=== PATIENT | female | born 1990 | race Caucasian/White ===

== ENCOUNTER 2018-07-13 11:51 | Outpatient (CLI) | payer OTHER ==
[2018-07-13 12:37] VITALS: BP 146/78; RESP 16; TEMP 97.1
[2018-07-13 12:54] LABS: Appearance,Urine Clear (Clear); Bacteria,Urine Rare /hpf; Bilirubin,Urine Negative (Negative); Blood,Urine Negative (Negative); Color,Urine Light Yellow; Glucose,Urine (UA) Negative (Negative); Ketones,Urine Negative (Negative); Leukocyte Esterase,Urine Trace (Negative); Mucus,Urine Rare /hpf; Nitrite,Urine Negative (Negative); Protein,Urine Negative (Negative); RBC,Urine <1 /hpf (0-5); Specific Gravity,Urine 1.007 (1.001-1.035); Squamous Epithelial Cell,Urine 5 /hpf (0-4); Urobilinogen,Urine <2.0 mg/dL (<2.0); WBC,Urine 3 /hpf (0-5)
[2018-07-13 13:16] LABS: Basophils % (A) 0 %; Eosinophils # (A) 0.1 k/uL (0-0.7); Eosinophils % (A) 1 %; HGB 11.8 gm/dL (11.4-16.0); Lymphocytes # (A) 1.8 k/uL (1.0-4.8); Lymphocytes % (A) 17 %; MCH 29.1 pg (25.0-35.0); MCHC 32.6 g/dL (31.0-37.0); MCV 89.1 fL (80.0-100.0); Mean Platelet Volume 6.9; Monocytes # (A) 0.5 k/uL (0-1.0); Monocytes % (A) 5 %; Neutrophils # (A) 7.6 k/uL (1.3-7.7); Neutrophils % (A) 75 %; Platelet Count 280 k/uL (150-450); RBC 4.04 m/uL (3.80-5.40); RDW 14.5 % (11.5-15.5); WBC 10.2 k/uL (3.8-10.6)
[2018-07-13 13:18] LABS: ALT 14 U/L (9-52); AST 14 U/L (14-36); Blood Urea Nitrogen 5 mg/dL (7-17); LDH 364 U/L (313-618); Uric Acid 3.9 mg/dL (3.7-7.4)
[2018-07-13 16:16] VITALS: PULSE 103
--- NOTE | 2018-07-15 08:20 | P.MSEPDOC ---
Presenting Problems - Arrival Data Date of Arrival on Unit: 07/13/18 Time of Arrival on Unit: 11:51 Mode of Transport: Ambulatory - Complaint OB-Reason for Admission/Chief Complaint: PIH Medical History - Information : 2 Para: 1 Term: 0 : 1 Abortions: Spontaneous or Elective: 0 Number of Living Children: 1 - Gestational Age Gestational Age by FRANKLYN (wks/days): 24 Weeks and 1 Days - History Complications: Prior , Prior Review of Systems - Review of Systems Constitutional: No problems Breast: No problems ENT: No problems Cardiovascular: No problems Respiratory: No problems Gastrointestinal: No problems Genitourinary: No problems Musculoskeletal: No problems Neurological: No problems Skin: No problems Vital Signs - Temperature Temperature: 97.1 F Temperature Source: Temporal Artery Scan - Pulse Right Sitting Brachial Pulse Rate: 103 Pulse Assessment Method: Automatic Cuff - Respirations Respiratory Rate: 16 Oxygen Delivery Method: Room Air - Blood Pressure Right Arm Sitting Blood Pressure: 146/78 Blood Pressure Mean: 100 Blood Pressure Source: Automatic Cuff Medical Screen Scoring (Pre) - Cervical Exam Dilation: Exam Deferred Effacement: Exam Deferred Membranes: Intact - Uterine Contractions Frequency: N/A Duration: N/A Intensity: N/A - Maternal Vital Signs Maternal Temperature: N/A Maternal Blood Pressure: N/A Signs of Preeclampsia: N/A Maternal Respirations: N/A - Maternal Trauma Maternal Trauma: N/A - Assessment Baseline FHR: 145 Heart Rate - NICHD Category: Category I (Normal) = 0 - Total Score Total Score (Pre): 0 - Level of Risk Level of Risk: Low (0-5) Physician Notification (Pre) - Notification Comment Comment: sent from office for [facility] work up Medical Screen Scoring (Post) - Cervical Exam Dilation: Exam Deferred Effacement: Exam Deferred - Pain Assessment Pain Scale Used: Numeric (1 - 10) Pain Intensity: 0 Pain Management Goal: 0 - Assessment Heart Rate: 135 Heart Rate - NICHD Category: Category I (Normal) = 0 - Total Score Total Score (Post): 0 - Post Treatment Level of Risk Post Treatment Level of Risk: Low (0-5) Physician Notification (Post) - Physician Notified Physician Notified Date: 07/13/18 Physician Notified Time: 13:50 Physician/Practitioner Notified:: Vin Spoke With: Vin New Order Received: Yes - Notification Comment Comment: May discharge to home, does not have to go to 1 hour GTT in lab unless she wants to, may do in office next week. Disposition - Disposition OB Disposition: Discharge to home Discharge Date: 07/13/18 Discharge Time: 14:00 I agree with the RN Medical Screening Exam: Yes Risk & Benefit of care provided described in d/c instruction: Yes Diagnosis: GESTATIONAL HTN W/O SIGNIFICANT PROTEINURIA, THIRD TRIMESTER
== END 2018-07-13 14:00 | disposition home or self-care (01) ==
LOC: FBPOP 11:51
PROVIDERS: ATTEND Obstetrics & Gynecology
DX: O13.3 Gestational [pregnancy-induced] hypertension without significant proteinuria, third trimester (principal); Z3A.24 24 weeks gestation of pregnancy
CPT/HCPCS: 82570; 84156; 82565; 83615; 84450; 84460; 84520; 84550; 85025; 81001; G0463; 99215

== ENCOUNTER → 2018-07-25 | Outpatient (CLI) | payer OTHER ==
[2018-07-25 12:20] LABS: HCT 35.9 % (34.0-46.0); HGB 11.7 gm/dL (11.4-16.0); MCHC 32.5 g/dL (31.0-37.0); MCV 89.1 fL (80.0-100.0); Mean Platelet Volume 7.6; Platelet Count 280 k/uL (150-450); RBC 4.03 m/uL (3.80-5.40); WBC 10.2 k/uL (3.8-10.6)
== END | disposition home or self-care (01) ==
LOC: LABWHC1 08:57
PROVIDERS: ATTEND Obstetrics & Gynecology
DX: Z34.82 Encounter for supervision of other normal pregnancy, second trimester (principal); Z3A.00 Weeks of gestation of pregnancy not specified
CPT/HCPCS: 36415; 82950; 85027

== ENCOUNTER 2018-08-14 11:38 | Outpatient (CLI) | payer OTHER ==
[2018-08-14 12:13] LABS: Appearance,Urine Clear (Clear); Bilirubin,Urine Negative (Negative); Blood,Urine Negative (Negative); Color,Urine Yellow; Glucose,Urine (UA) Negative (Negative); Ketones,Urine Negative (Negative); Leukocyte Esterase,Urine Trace (Negative); Mucus,Urine Rare /hpf; Nitrite,Urine Negative (Negative); Protein,Urine Negative (Negative); Specific Gravity,Urine 1.008 (1.001-1.035); Squamous Epithelial Cell,Urine 5 /hpf (0-4); Urobilinogen,Urine <2.0 mg/dL (<2.0); WBC,Urine 4 /hpf (0-5)
[2018-08-14 12:38] LABS: Basophils % (A) 0 %; Eosinophils # (A) 0.1 k/uL (0-0.7); Eosinophils % (A) 1 %; HCT 35.7 % (34.0-46.0); HGB 12.1 gm/dL (11.4-16.0); Lymphocytes # (A) 1.5 k/uL (1.0-4.8); Lymphocytes % (A) 13 %; MCH 29.8 pg (25.0-35.0); MCHC 33.8 g/dL (31.0-37.0); MCV 88.1 fL (80.0-100.0); Mean Platelet Volume 7.2; Monocytes # (A) 0.5 k/uL (0-1.0); Monocytes % (A) 4 %; Neutrophils # (A) 8.9 k/uL (1.3-7.7); Neutrophils % (A) 81 %; Platelet Count 289 k/uL (150-450); RBC 4.05 m/uL (3.80-5.40); RDW 14.7 % (11.5-15.5)
[2018-08-14 12:49] LABS: ALT 10 U/L (9-52); AST 12 U/L (14-36); African American GFR (CKD) >90 (>60 ml/min/1.73 sqM); Blood Urea Nitrogen 3 mg/dL (7-17); LDH 334 U/L (313-618); Uric Acid 3.4 mg/dL (3.7-7.4)
[2018-08-14 13:15] VITALS: BP 128/68; PULSE 105; RESP 18; TEMP 98.7
--- NOTE | 2018-08-21 08:18 | P.MSEPDOC ---
Presenting Problems - Arrival Data Date of Arrival on Unit: 08/14/18 Time of Arrival on Unit: 11:30 Mode of Transport: Ambulatory - Complaint OB-Reason for Admission/Chief Complaint: PIH Comment: labs per Dr Banuelos Medical History - Information : 2 Para: 1 Term: 1 : 0 Abortions: Spontaneous or Elective: 0 Number of Living Children: 1 - History Complications: Prior Comment: hx: preeclampsia, placenta previa Review of Systems - Review of Systems Constitutional: No problems Breast: No problems ENT: No problems Cardiovascular: No problems Respiratory: No problems Gastrointestinal: No problems Genitourinary: No problems Musculoskeletal: No problems Neurological: No problems Vital Signs - Temperature Temperature: 98.7 F Temperature Source: Oral - Pulse Right Sitting Brachial Pulse Rate: 105 Pulse Assessment Method: Automatic Cuff - Respirations Respiratory Rate: 18 Oxygen Delivery Method: Room Air O2 Sat by Pulse Oximetry: 98 - Blood Pressure Right Arm Sitting Blood Pressure: 128/68 Blood Pressure Mean: 88 Blood Pressure Source: Automatic Cuff Medical Screen Scoring (Pre) - Cervical Exam Dilation: Exam Deferred Effacement: Exam Deferred - Uterine Contractions Frequency: N/A Duration: N/A Intensity: N/A - Maternal Vital Signs Maternal Temperature: N/A Maternal Blood Pressure: N/A Signs of Preeclampsia: N/A Maternal Respirations: N/A - Maternal Trauma Maternal Trauma: N/A - Assessment - Baby A Baseline FHR: 135 Heart Rate - NICHD Category: Category I (Normal) = 0 NST: Reactive Position: N/A Station: N/A - Total Score - Baby A Total Score - Baby A: 0 - Total Score - Baby B Total Score - Baby B: 0 - Total Score - Baby C Total Score - Baby C: 0 - Level of Risk - Baby A Level of Risk - Baby A: Low (0-5) - Level of Risk - Baby B Level of Risk - Baby B: Low (0-5) - Level of Risk - Baby C Level of Risk - Baby C: Low (0-5) Physician Notification (Pre) - Physician Notified Physician Notified Date: 08/14/18 Physician Notified Time: 13:10 Physician/Practitioner Notifed:: Dr Banuelos Spoke With: Dr Banuelos New Order Received: Yes - Notification Comment Comment: [facility], follow up with Dr Banuelos in office in one week. Disposition - Disposition OB Disposition: Discharge to home Discharge Date: 08/14/18 Discharge Time: 13:15 I agree with the RN Medical Screening Exam: Yes Risk & Benefit of care provided described in d/c instruction: Yes Diagnosis: GESTATIONAL HTN W/O SIGNIFICANT PROTEINURIA, THIRD TRIMESTER
== END 2018-08-14 13:16 | disposition home or self-care (01) ==
LOC: FBPOP 11:38
PROVIDERS: ATTEND Obstetrics & Gynecology
DX: O13.3 Gestational [pregnancy-induced] hypertension without significant proteinuria, third trimester (principal); Z3A.00 Weeks of gestation of pregnancy not specified
CPT/HCPCS: 59025; 81001; 82565; 82570; 83615; 84156; 84450; 84460; 84520; 84550; 85025

== ENCOUNTER 2018-08-31 11:32 | Outpatient (CLI) | payer OTHER ==
[2018-08-31 12:23] LABS: Appearance,Urine Clear (Clear); Bacteria,Urine Rare /hpf; Bilirubin,Urine Negative (Negative); Blood,Urine Negative (Negative); Color,Urine Yellow; Glucose,Urine (UA) Negative (Negative); Ketones,Urine Negative (Negative); Leukocyte Esterase,Urine Moderate (Negative); Mucus,Urine Rare /hpf; Nitrite,Urine Negative (Negative); PH, Urine 7.5 (5.0-8.0); Protein,Urine Trace (Negative); Specific Gravity,Urine 1.014 (1.001-1.035); Squamous Epithelial Cell,Urine 5 /hpf (0-4); Urobilinogen,Urine <2.0 mg/dL (<2.0); WBC,Urine 5 /hpf (0-5)
[2018-08-31 12:40] LABS: Basophils % (A) 0 %; Eosinophils # (A) 0.2 k/uL (0-0.7); Eosinophils % (A) 1 %; HCT 35.8 % (34.0-46.0); Lymphocytes # (A) 1.7 k/uL (1.0-4.8); Lymphocytes % (A) 16 %; MCH 29.6 pg (25.0-35.0); MCHC 33.4 g/dL (31.0-37.0); MCV 88.6 fL (80.0-100.0); Mean Platelet Volume 7.3; Monocytes # (A) 0.5 k/uL (0-1.0); Monocytes % (A) 4 %; Neutrophils # (A) 8.4 k/uL (1.3-7.7); Neutrophils % (A) 78 %; Platelet Count 274 k/uL (150-450); RBC 4.04 m/uL (3.80-5.40); WBC 10.8 k/uL (3.8-10.6)
[2018-08-31 12:54] LABS: ALT 13 U/L (9-52); AST 13 U/L (14-36); African American GFR (CKD) >90 (>60 ml/min/1.73 sqM); Blood Urea Nitrogen 3 mg/dL (7-17); LDH 316 U/L (313-618); Uric Acid 3.4 mg/dL (3.7-7.4)
[2018-08-31 16:03] VITALS: RESP 16; TEMP 96.4
[2018-08-31 16:06] VITALS: BP 135/65; PULSE 100
--- NOTE | 2018-09-16 17:13 | P.MSEPDOC ---
Presenting Problems - Arrival Data Date of Arrival on Unit: 08/31/18 Time of Arrival on Unit: 11:32 Mode of Transport: Ambulatory - Complaint OB-Reason for Admission/Chief Complaint: PIH Comment: sent with script from office Medical History - Information : 1 Para: 0 Term: 0 : 0 Abortions: Spontaneous or Elective: 0 Number of Living Children: 0 - Gestational Age Gestational Age by FRANKLYN (wks/days): 31 Weeks and 1 Days - History Complications: Prior , Prior Comment: history of 37 week for preeclampsia Review of Systems - Review of Systems Constitutional: No problems Breast: No problems ENT: No problems Cardiovascular: No problems Respiratory: No problems Gastrointestinal: No problems Genitourinary: No problems Musculoskeletal: No problems Neurological: No problems Skin: No problems Vital Signs - Temperature Temperature: 96.4 F Temperature Source: Temporal Artery Scan - Pulse Right Brachial Pulse Rate: 100 Pulse Assessment Method: Automatic Cuff - Respirations Respiratory Rate: 16 - Blood Pressure Right Arm Sitting Blood Pressure: 135/65 Blood Pressure Mean: 88 Blood Pressure Source: Automatic Cuff Medical Screen Scoring (Pre) - Cervical Exam Dilation: Exam Deferred Effacement: Exam Deferred Membranes: Intact - Uterine Contractions Frequency: N/A Duration: N/A Intensity: N/A - Maternal Vital Signs Maternal Temperature: N/A Maternal Blood Pressure: Systolic >139 = 2 Signs of Preeclampsia: N/A Maternal Respirations: N/A - Maternal Trauma Maternal Trauma: N/A - Assessment - Baby A Baseline FHR: 135 Heart Rate - NICHD Category: Category I (Normal) = 0 NST: Reactive Position: N/A Station: N/A - Total Score - Baby A Total Score - Baby A: 2 - Total Score - Baby B Total Score - Baby B: 2 - Total Score - Baby C Total Score - Baby C: 2 - Level of Risk - Baby A Level of Risk - Baby A: Low (0-5) - Level of Risk - Baby B Level of Risk - Baby B: Low (0-5) - Level of Risk - Baby C Level of Risk - Baby C: Low (0-5) - Pain Assessment Pain Scale Used: Numeric (1 - 10) Pain Intensity: 0 Medical Screen Scoring (Post) - Cervical Exam Dilation: Exam Deferred Effacement: Exam Deferred Membranes: Intact - Uterine Contractions Frequency: N/A Duration: N/A Intensity: N/A - Maternal Vital Signs Maternal Temperature: N/A Maternal Blood Pressure: N/A Signs of Preeclampsia: N/A Maternal Respirations: N/A - Maternal Trauma Maternal Trauma: N/A - Assessment - Baby A Heart Rate: 135 Heart Rate - NICHD Category: Category I (Normal) = 0 NST: Reactive - Total Score Total Score - Baby A: 0 Total Score - Baby B: 0 Total Score - Baby C: 0 - Post Treatment Level of Risk Post Treatment Level of Risk - Baby A: Low (0-5) Post Treatment Level of Risk - Baby B: Low (0-5) Post Treatment Level of Risk - Baby C: Low (0-5) Physician Notification (Post) - Physician Notified Physician Notified Date: 08/31/18 Physician Notified Time: 13:20 Spoke With: Vin aFrooq Order Received: Yes - Notification Comment Comment: PIH labs wnl, UA trace protein, pressures wnl Disposition - Disposition OB Disposition: Discharge to home, Written follow up instructions reviewed Discharge Date: 08/31/18 Discharge Time: 13:25 I agree with the RN Medical Screening Exam: Yes Risk & Benefit of care provided described in d/c instruction: Yes Diagnosis: GESTATIONAL HTN W/O SIGNIFICANT PROTEINURIA, THIRD TRIMESTER
== END 2018-08-31 13:25 | disposition home or self-care (01) ==
LOC: FBPOP 11:32
PROVIDERS: ATTEND Obstetrics & Gynecology
DX: O13.3 Gestational [pregnancy-induced] hypertension without significant proteinuria, third trimester (principal); Z3A.31 31 weeks gestation of pregnancy
CPT/HCPCS: 59025; 81001; 82565; 83615; 84450; 84460; 84520; 84550; 85025

== ENCOUNTER 2018-10-12 05:50 | Inpatient (IN) | payer OTHER ==
--- NOTE | 2018-10-09 16:24 | P.HPOB ---
History of Present Illness H&P Date: 10/09/18 Chief Complaint: Intrauterine at term: Prior section Bessie is a 28-year-old with history of macrosomia who had a section with her initial and is having a repeat section today. Risks/benefits/alternatives to this procedure were discussed with patient in detail and all questions were answered for her prior to proceeding to the operative room. course has been significant for gestational hypertension and therefore we are moving forward with a delivery at 37 weeks rather than waiting until 39 weeks.. She is scheduled for a repeat section for same. On physical exam vital signs are stable and afebrile. Heart regular, lungs clear, extremities without pain. Abdomen soft gravid uterus is noted. Past Medical History Past Medical History: No Reported History History of Any Multi-Drug Resistant Organisms: None Reported Past Surgical History: Adenoidectomy, Section Additional Past Surgical History / Comment(s): deviated septum sx, Tubes in ears Past Anesthesia/Blood Transfusion Reactions: Previous Problems w/ Anesthesia Additional Past Anesthesia/Blood Transfusion Reaction / Comment(s): low oxygen sats in post op, vomiting during csection Smoking Status: Never smoker - Past Family History Mother Family Medical History: Hypertension Brother(s) Family Medical History: Hypertension Additional Family Medical History / Comment(s): celiac Medications and Allergies Home Medications Medication Instructions Recorded Confirmed Type Pnv No.95/Ferrous Fum/Folic AC 1 each PO DAILY 08/14/18 10/09/18 History [ Multivitamin Tablet] Allergies Allergy/AdvReac Type Severity Reaction Status Date / Time No Known Allergies Allergy Verified 10/09/18 15:56 Exam Osteopathic Statement: *. No significant issues noted on an osteopathic structural exam other than those noted in the History and Physical/Consult. Intake and Output 10/09/18 10/09/18 10/09/18 06:59 14:59 22:59 Other: Weight 126.552 kg - OBG Physical Exam Breast: both: normal (no masses) Abdomen: bowel sounds normal, no diffuse tenderness, no bruit present, no guarding noted, no hepatomegaly, no splenomegaly, no mass Vulva: both: normal Vagina: normal moisture, no discharge Cervix: no lesion, no discharge Uterus: normal size, normal contour Adnexa: both: normal Anus/Rectum: normal perianal skin, no rectal mass, no hemorrhoids, heme negative
[2018-10-12] MEDS ORDERED: CITRIC ACID-SODIUM CITRATE 15 ML CUP PO ONE (05:58)
[2018-10-12 06:16] VITALS: BMI 49.2
[2018-10-12 06:20] LABS: Basophils % (A) 0 %; Eosinophils # (A) 0.1 k/uL (0-0.7); Eosinophils % (A) 1 %; HCT 35.5 % (34.0-46.0); HGB 11.9 gm/dL (11.4-16.0); Lymphocytes # (A) 1.7 k/uL (1.0-4.8); Lymphocytes % (A) 17 %; MCH 29.7 pg (25.0-35.0); MCHC 33.4 g/dL (31.0-37.0); MCV 88.9 fL (80.0-100.0); Mean Platelet Volume 7.1; Monocytes # (A) 0.5 k/uL (0-1.0); Monocytes % (A) 5 %; Neutrophils # (A) 7.6 k/uL (1.3-7.7); Neutrophils % (A) 76 %; Platelet Count 250 k/uL (150-450); RBC 3.99 m/uL (3.80-5.40); RDW 14.8 % (11.5-15.5)
[2018-10-12] MEDS: LACTATED RINGERS 1,000 ML IV SCH ×3 (06:22→20:28)
[2018-10-12] MEDS ORDERED: ePHEDrine SULFATE/0.9% NACL/PF 50 MG/5 ML SYRINGE IV ONE (08:00)
[2018-10-12] MEDS ORDERED: KETOROLAC 30 MG/ML 1 ML VIAL ONE (08:00)
[2018-10-12] MEDS ORDERED: MORPHINE SULFATE (PF) 0.3 MG/0.3 ML SYR ONE (08:00)
[2018-10-12] MEDS ORDERED: ONDANSETRON 4 MG/2 ML VIAL ONE (08:00)
[2018-10-12] MEDS ORDERED: NALBUPHINE 10 MG/ML (1 ML AMP) ONE (08:00)
[2018-10-12] MEDS ORDERED: OXYTOCIN 10 UNIT/ML 1 ML VIAL ONE (08:00)
[2018-10-12] MEDS ORDERED: diphenhydrAMINE 50 MG CAP PO PRN (08:37)
[2018-10-12] MEDS ORDERED: MEASLES-MUMPS-RUBELLA VACC/PF 12,500 UNIT/0.5 ML VIAL SQ ONE (08:37)
[2018-10-12] MEDS ORDERED: diphenhydrAMINE 50 MG/ML 1 ML VIAL IVP PRN ×2 (08:37)
[2018-10-12] MEDS ORDERED: ZOLPIDEM 5 MG TAB PO PRN (08:37)
[2018-10-12] MEDS ORDERED: diphenhydrAMINE 25 MG CAP PO PRN (08:37)
[2018-10-12] MEDS ORDERED: NALOXONE 0.4 MG/ML 1 ML VIAL IV PRN ×2 (08:37→08:50)
[2018-10-12] MEDS ORDERED: METOCLOPRAMIDE 5 MG/ML 2 ML VIAL IVP PRN (08:37)
[2018-10-12] MEDS ORDERED: ACETAMINOPHEN TAB 325 MG TAB PO PRN (08:37)
[2018-10-12] MEDS ORDERED: ONDANSETRON 4 MG/2 ML VIAL IVP PRN (08:37)
--- NOTE | 2018-10-12 08:43 | P.OP ---
Date of Procedure: 10/12/18 Preoperative Diagnosis: Intrauterine at term: Gestational hypertension: Previous section Postoperative Diagnosis: Same Procedure(s) Performed: Repeat section low transverse Anesthesia: CASEY Surgeon: Choco Banuelos Physicist Acoustics #1: Mindi Freeman Estimated Blood Loss (ml): 300 IV fluids (ml): 1,000 Urine output (ml): 200 Pathology: other (Placenta) Condition: stable Disposition: floor Operative Findings: Male doing well Description of Procedure: Patient was taken to the operating suite where a spinal anesthetic was found be adequate. She was prepped and draped in normal sterile fashion and placed in dorsal supine position with leftward tilt. Initially a Pfannenstiel skin incision was made and this incision was then carried through to underlying layer of the fashion with the second knife. Fascia was then nicked in the midline and this opening was extended laterally with Momin scissors. Superior and inferior aspect of this incision were then grasped tented up and bluntly and sharply dissected off the rectus muscles. Rectus muscles were then divided the midline and sharp dissection the peritoneum was done. This opening was then extended superiorly and inferiorly with good visualization of bowel bladder with Metzenbaum scissors. Once this was accomplished bladder flap was identified and entered with metastases from scissors and bladder was bluntly dissected out of the operative field. Knife was then used to incise uterus this opening was fully developed with a hemostat and then extended bluntly. Head was then H medically delivered. Mouth nares were then bulb suctioned anterior posterior shoulders easily delivered followed by the remainder the baby nursery personnel was present to assume care and the umbilical cord was clamped cut usual fashion. Ascent was then delivered intact and Pitocin was added to the IV. Uterus was then exteriorized cleared of clots and debris and closed in 2 layers with 0 Vicryl suture. Once excellent hemostasis was felt to be obtained blood and debris was suctioned the posterior cul-de-sac and uterus was reinserted into the abdomen. Peritoneal layer was then reapproximated with 0 Vicryl suture. Fascial layer was closed with 0 Vicryl suture. One layer of 3-0 Vicryl was then the subcuticular tissues were approximate the skin. Skin was then closed with 3-0 Vicryl subcuticular. Sponge, lap, needle counts were all correct 2. Patient was then taken to the recovery room in stable and satisfactory condition.
[2018-10-12] MEDS: KETOROLAC 30 MG/ML 1 ML VIAL IVP PRN (16:27)
[2018-10-13] MEDS: SENNOSIDES-DOCUSATE SODIUM 1 EACH TAB PO SCH ×3 (00:54→21:17)
[2018-10-13] MEDS: LACTATED RINGERS 1,000 ML IV SCH ×3 (00:54→21:17)
[2018-10-13] MEDS: KETOROLAC 30 MG/ML 1 ML VIAL IVP PRN (03:45)
[2018-10-13 06:49] LABS: Basophils % (A) 0 %; Eosinophils # (A) 0.1 k/uL (0-0.7); Eosinophils % (A) 1 %; HCT 30.5 % (34.0-46.0); HGB 10.6 gm/dL (11.4-16.0); Lymphocytes # (A) 1.2 k/uL (1.0-4.8); Lymphocytes % (A) 14 %; MCH 31.2 pg (25.0-35.0); MCHC 34.6 g/dL (31.0-37.0); MCV 90.1 fL (80.0-100.0); Mean Platelet Volume 7.7; Monocytes # (A) 0.6 k/uL (0-1.0); Monocytes % (A) 6 %; Neutrophils # (A) 7.2 k/uL (1.3-7.7); Neutrophils % (A) 78 %; Platelet Count 194 k/uL (150-450); RBC 3.39 m/uL (3.80-5.40); RDW 14.9 % (11.5-15.5); WBC 9.2 k/uL (3.8-10.6)
--- NOTE | 2018-10-13 07:13 | P.PNOBGPC ---
Subjective - Subjective Principal diagnosis: Postop day 1 Interval history: Bessie is doing very well postop day 1. She is involuting, voiding and tolerating her diet. She voices no complaints. Vital signs are stable and afebrile. Incision is otherwise intact. Heart regular, lungs clear, extremities without pain. Abdomen soft positive bowel sounds. Patient reports: Reports appetite normal (Postoperative), Reports voiding normally, Reports pain well controlled, Reports ambulating normally : doing well Objective - Vital Signs Latest vital signs: Vital Signs Temp Pulse Resp BP Pulse Ox 10/13/18 06:00 16 10/13/18 04:00 98.1 F 82 18 134/62 97 10/13/18 02:00 16 10/13/18 00:00 98.1 F 86 18 115/65 96 10/12/18 22:00 18 96 10/12/18 20:00 98.3 F 88 18 134/76 96 10/12/18 16:56 16 98 10/12/18 16:00 98.4 F 76 16 123/72 98 10/12/18 15:00 16 10/12/18 13:50 98 10/12/18 13:00 16 10/12/18 12:00 98.7 F 88 16 128/68 97 10/12/18 11:50 16 10/12/18 10:51 96.2 F L 111 H 16 110/53 10/12/18 10:21 92 16 107/57 96 10/12/18 09:51 92 16 123/62 96 10/12/18 09:50 16 96 10/12/18 09:36 96 16 119/64 95 10/12/18 09:21 99 16 124/63 10/12/18 09:06 101 H 16 130/63 97 10/12/18 08:51 96.6 F L 104 H 16 132/62 97 10/12/18 08:50 16 98 Intake and Output 10/12/18 10/13/18 10/13/18 22:59 06:59 14:59 Intake Total 500 Output Total 150 201 Balance 350 -201 Intake: Intake, IV Titration 500 Amount Lactated Ringers 1,000 ml 500 @ 125 mls/hr IV .[facility] Rx#:[id number] Output: Urine 150 201 Uretheral ([place]) 150 Other: Voiding Method Indwelling Catheter # Voids 400 - Exam Lungs: bilateral: normal Chest: Normal S1, Normal S2 Extremities: Present: normal Abdomen: Present: normal appearance, soft. Absent: distention, tenderness Incision: Present: normal, dry, intact Uterus: Present: normal, firm - Labs Labs: Abnormal Lab Results - Last 24 Hours (Table) 10/13/18 Range/Units 06:30 RBC 3.39 L (3.80-5.40) m/uL Hgb 10.6 L (11.4-16.0) gm/dL Hct 30.5 L (34.0-46.0) %
--- NOTE | 2018-10-13 11:32 | P.PN ---
Progress Note - Text Anesthesia POD 1 minute, 0 650. Patient is status post section under spinal anesthesia with intra-thecal preservative free morphine 300 g. Mild pruritus, good post-op analgesia, and no headache or other complications.
[2018-10-13] MEDS: IBUPROFEN 600 MG TAB PO PRN ×2 (13:07→19:28)
[2018-10-14] MEDS: HYDROcodone/APAP 7.5-325MG 1 EACH TAB PO PRN ×3 (00:05→13:27)
[2018-10-14] MEDS: IBUPROFEN 600 MG TAB PO PRN (03:22)
[2018-10-14 08:35] VITALS: BP 124/72; PULSE 86; RESP 16; TEMP 98.2
--- NOTE | 2018-10-14 09:10 | P.PNOBGPC ---
Subjective - Subjective Principal diagnosis: Postoperative day 2 Interval history: Overall Bessie is doing very well. She is ambulating, voiding and tolerating her diet. She voices no complaints. Vital signs are stable and afebrile. Heart regular, lungs clear, extremities without pain. Baby is likely going to have to stay tonight so we will defer discharge until tomorrow. All questions are answered for her at this time. Prescriptions have been forwarded to the pharmacy already. Patient reports: Reports appetite normal, Reports voiding normally, Reports pain well controlled, Reports ambulating normally : doing well Objective - Vital Signs Latest vital signs: Vital Signs Temp Pulse Resp BP Pulse Ox 10/14/18 08:00 98.2 F 86 16 124/72 99 10/14/18 00:00 97.9 F 88 18 140/78 99 10/13/18 16:00 98.2 F 89 16 134/73 10/13/18 13:08 98.4 F 94 14 128/70 10/13/18 09:42 98.2 F 87 14 119/75 Intake and Output 10/13/18 10/14/18 10/14/18 22:59 06:59 14:59 Other: # Voids 2
--- NOTE | 2018-10-14 16:48 | P.DS ---
Providers Date of admission: 10/12/18 05:50 Expected date of discharge: 10/14/18 Attending physician: Choco Banuelos Primary care physician: Choco Banuelos Hospital Course: Margareth was discharged on post op day 2. She was involuting, voiding and tolerating her diet. She voices no complaints and her incision was clean dry and intact. She'll follow up in 1 week. There are no changes from her previous dictation earlier today. Discharge instructions thoroughly reviewed been reviewed and all questions were answered for her prior to discharge. Prescription for [place] and Motrin were provided. Patient Condition at Discharge: Good Plan - Discharge Summary Discharge Rx Participant: Yes New Discharge Prescriptions: New Ibuprofen [Motrin] 600 mg PO Q6HR PRN #30 tab PRN Reason: Pain HYDROcodone/APAP 5-325MG [[place] 5-325] 1 tab PO Q4HR PRN #30 tab PRN Reason: Pain No Action Pnv No.95/Ferrous Fum/Folic AC [ Multivitamin Tablet] 1 each PO DAILY Discharge Medication List Pnv No.95/Ferrous Fum/Folic AC [ Multivitamin Tablet] 1 each PO DAILY 08/14/18 [History] HYDROcodone/APAP 5-325MG [[place] 5-325] 1 tab PO Q4HR PRN #30 tab 10/14/18 [Rx] Ibuprofen [Motrin] 600 mg PO Q6HR PRN #30 tab 10/14/18 [Rx] Follow up Appointment(s)/Referral(s): Choco Banuelos DO [Primary Care Provider] - 1 Week Activity/Diet/Wound Care/Special Instructions: No heavy lifting, limit stairs and driving, and pelvic rest. If any high te mperatures, heavy bleeding, or severe pain call my office Discharge Disposition: HOME SELF-CARE
== END 2018-10-14 14:45 | disposition home or self-care (01) | DRG 788 ==
LOC: 4FBP 05:50
PROVIDERS: ADMIT Obstetrics & Gynecology; ATTEND Obstetrics & Gynecology
PROC: 10D00Z1 Extraction of Products of Conception, Low, Open Approach (ICD-10-PCS; principal; 2018-10-12 08:00)
DX: O13.4 Gestational [pregnancy-induced] hypertension without significant proteinuria, complicating childbirth (principal); O34.211 Maternal care for low transverse scar from previous cesarean delivery; O99.72 Diseases of the skin and subcutaneous tissue complicating childbirth; L29.9 Pruritus, unspecified; Z3A.37 37 weeks gestation of pregnancy; Z37.0 Single live birth; Z82.49 Family history of ischemic heart disease and other diseases of the circulatory system
CPT/HCPCS: 85025; 86850; 86900; 86901; 88307

== ENCOUNTER → 2022-03-04 | Outpatient (CLI) | payer OTHER | END | disposition home or self-care (01) | LOC: LABWHC1 09:48 | PROVIDERS: ATTEND Obstetrics & Gynecology | DX: Z34.82 Encounter for supervision of other normal pregnancy, second trimester (principal); Z3A.00 Weeks of gestation of pregnancy not specified | CPT/HCPCS: 36415; 82950 ==

== ENCOUNTER 2022-04-17 11:02 | Outpatient (CLI) | payer OTHER ==
[2022-04-17] MEDS ORDERED: BETAMET ACET-BETAMETH SOD PHOS 6 MG/ML MDV IM SCH (11:30)
[2022-04-17 12:20] LABS: Appearance,Urine Cloudy (Clear); Bilirubin,Urine Negative (Negative); Blood,Urine Negative (Negative); Color,Urine Yellow; Glucose,Urine (UA) 2+ (Negative); Ketones,Urine Trace (Negative); Leukocyte Esterase,Urine Trace (Negative); Mucus,Urine Rare /hpf; Nitrite,Urine Negative (Negative); Protein,Urine Trace (Negative); RBC,Urine 2 /hpf (0-5); Specific Gravity,Urine 1.014 (1.001-1.035); Squamous Epithelial Cell,Urine 8 /hpf (0-4); WBC,Urine 2 /hpf (0-5)
[2022-04-17 13:12] LABS: Basophils % (A) 0 %; Eosinophils # (A) 0.1 k/uL (0-0.7); Eosinophils % (A) 1 %; HGB 11.9 gm/dL (11.4-16.0); Lymphocytes # (A) 1.8 k/uL (1.0-4.8); Lymphocytes % (A) 19 %; MCH 29.7 pg (25.0-35.0); MCHC 33.9 g/dL (31.0-37.0); MCV 87.6 fL (80.0-100.0); Mean Platelet Volume 7.9; Monocytes # (A) 0.6 k/uL (0-1.0); Monocytes % (A) 6 %; Neutrophils # (A) 6.4 k/uL (1.3-7.7); Neutrophils % (A) 70 %; Platelet Count 298 k/uL (150-450); Poikilocytosis Slight; RDW 15.6 % (11.5-15.5); WBC 9.1 k/uL (3.8-10.6)
[2022-04-17 13:23] LABS: ALT 15 U/L (4-34); AST 18 U/L (14-36); African American GFR (CKD) >90 (>60 ml/min/1.73 sqM); Blood Urea Nitrogen 4 mg/dL (7-17); LDH 325 U/L (313-618); Non-African American GFR(CKD) >90 (>60 ml/min/1.73 sqM); Uric Acid 3.8 mg/dL (3.7-7.4)
[2022-04-17 14:26] VITALS: BP 146/95; PULSE 146; RESP 18; TEMP 97.5
== END 2022-04-17 13:38 | disposition home or self-care (01) ==
LOC: FBPOP 11:02
PROVIDERS: ATTEND Obstetrics & Gynecology
DX: O13.3 Gestational [pregnancy-induced] hypertension without significant proteinuria, third trimester (principal); Z3A.35 35 weeks gestation of pregnancy
CPT/HCPCS: 59025; 96372; 82565; 83615; 84450; 84460; 84520; 84550; 85025; 81001; J0702

== ENCOUNTER 2022-04-29 10:44 | Outpatient (CLI) | payer OTHER ==
[2022-04-29 11:24] LABS: Appearance,Urine Clear (Clear); Bilirubin,Urine Negative (Negative); Blood,Urine Negative (Negative); Color,Urine Light Yellow; Glucose,Urine (UA) Negative (Negative); Ketones,Urine Negative (Negative); Leukocyte Esterase,Urine Negative (Negative); Nitrite,Urine Negative (Negative); Protein,Urine Negative (Negative); Specific Gravity,Urine 1.006 (1.001-1.035); Urobilinogen,Urine <2.0 mg/dL (<2.0)
[2022-04-29 11:29] LABS: Basophils # (A) 0.1 k/uL (0-0.2); Basophils % (A) 1 %; Eosinophils # (A) 0.1 k/uL (0-0.7); Eosinophils % (A) 1 %; HCT 36.3 % (34.0-46.0); Lymphocytes % (A) 20 %; MCH 29.6 pg (25.0-35.0); MCV 89.9 fL (80.0-100.0); Mean Platelet Volume 7.8; Monocytes # (A) 0.5 k/uL (0-1.0); Monocytes % (A) 5 %; Neutrophils # (A) 7.1 k/uL (1.3-7.7); Neutrophils % (A) 70 %; Platelet Count 314 k/uL (150-450); Poikilocytosis Slight; RBC 4.04 m/uL (3.80-5.40); RDW 15.7 % (11.5-15.5); WBC 10.1 k/uL (3.8-10.6)
[2022-04-29 11:42] LABS: ALT 22 U/L (4-34); AST 24 U/L (14-36); African American GFR (CKD) >90 (>60 ml/min/1.73 sqM); Blood Urea Nitrogen 3 mg/dL (7-17); LDH 441 U/L (313-618); Non-African American GFR(CKD) >90 (>60 ml/min/1.73 sqM); Uric Acid 4.8 mg/dL (3.7-7.4)
[2022-04-29 11:54] LABS: Creatinine,Urine Random 47.2 mg/dL; Protein/Creatinine Ratio,Urine 0.339
[2022-04-29 13:54] VITALS: BP 141/76; PULSE 110; RESP 18; TEMP 95.4
== END 2022-04-29 13:30 | disposition home or self-care (01) ==
LOC: FBPOP 10:44
PROVIDERS: ATTEND Obstetrics & Gynecology
DX: O13.3 Gestational [pregnancy-induced] hypertension without significant proteinuria, third trimester (principal); Z3A.37 37 weeks gestation of pregnancy
CPT/HCPCS: 36415; 59025; 81003; 82565; 82570; 83615; 84156; 84450; 84460; 84520; 84550; 85025; 99215

== ENCOUNTER 2022-05-08 10:10 | Inpatient (IN) | payer OTHER ==
[2022-05-06 15:34] VITALS: BMI 50.5
[2022-05-08] MEDS ORDERED: CITRIC ACID-SODIUM CITRATE 15 ML CUP PO ONE (10:46)
[2022-05-08] MEDS ORDERED: ceFAZolin 3 GM in SODIUM CHLORIDE 0.9% 100 ML IVPB ONE (10:46)
--- NOTE | 2022-05-08 12:00 | P.HPOB ---
History of Present Illness H&P Date: 05/08/22 Chief Complaint: 38+ weeks, chronic hypertension The patient is a 31-year-old 5 para 20-2 who is admitted at 38+ weeks as established by last menstrual period and confirmed by 8 week ultrasound. She is admitted for repeat low transverse section having undergone 2 previous sections. She does have a large for gestational age fetus measuring at greater than 90th percentile and historically has had 2 previous macrosomic infants. Her has been complicated by chronic hypertension which is been moderately well controlled with labetalol 200 mg 3 times daily. Multiple workups for preeclampsia been negative. On labor and delivery, all signs reassuring with a category 1 heart rate tracing. testing has been reassuring throughout the in the third trimester. Group B strep status is negative. Obstetrical history: 5 para 20-2 with 2 previous term sections as noted above. Current statistics are listed in history of present illness. EDC of 05/19/2022 was established by last menstrual period and confirmed by 8 week ultrasound. Laboratory workup demonstrates a blood type of O+ with a negative antibody screen. Rubella status is immune. The remainder of the laboratory workup was within normal limits. Early Glucola was normal as well as second trimester Glucola. Group B strep status is negative. Gynecologic history: Unremarkable with no history of any infections to include STDs. Review of Systems Review of systems is confined to history of present illness. Past Medical History Past Medical History: Asthma, GERD/Reflux, Hearing Disorder / Deafness, Hypertension Additional Past Medical History / Comment(s): - LMP July 2021, states htn with pregnancies, asthma (no rx)., gerd with ., hearing loss-wears hearing aids. History of Any Multi-Drug Resistant Organisms: None Reported Past Surgical History: Adenoidectomy, Section Additional Past Surgical History / Comment(s): deviated septum sx, Tubes in ears, tendon and nerve repair left index finger (may 2020) Past Anesthesia/Blood Transfusion Reactions: Previous Problems w/ Anesthesia, Postoperative Nausea & Vomiting (PONV) Additional Past Anesthesia/Blood Transfusion Reaction / Comment(s): low oxygen sats in post op after general anesthesia., vomiting during csection Past Psychological History: No Psychological Hx Reported Smoking Status: Never smoker Past Alcohol Use History: None Reported Past Drug Use History: None Reported - Past Family History Mother Family Medical History: Diabetes Mellitus, Hypertension Brother(s) Family Medical History: Hypertension Additional Family Medical History / Comment(s): celiac Medications and Allergies Home Medications Medication Instructions Recorded Confirmed Type Pnv No.95/Ferrous Fum/Folic AC 1 each PO DAILY 08/14/18 05/06/22 History [ Multivitamin Tablet] Aspirin 81 mg PO DAILY 04/17/22 05/06/22 History Labetalol [Trandate] 200 mg PO BID 04/17/22 05/06/22 History Omeprazole Magnesium [PriLOSEC OTC] 20 mg PO DIRECTED PRN 05/06/22 05/06/22 History Allergies Allergy/AdvReac Type Severity Reaction Status Date / Time No Known Allergies Allergy Verified 05/06/22 15:16 Exam Vital Signs Temp Pulse Resp BP Pulse Ox 05/08/22 10:46 97.4 F L 120 H 20 131/80 98 Intake and Output 05/07/22 05/08/22 05/08/22 22:59 06:59 14:59 Other: Weight 129.274 kg In general, this is a well-developed, morbidly obese white female in no acute distress. Her heart has a regular rhythm and rate without murmur. Her lungs clear to auscultation bilaterally in all pearce. Her abdomen is gravid, nondistended, has normal active bowel sounds, soft, nontender, and without any palpable masses aside from the uterine fundus. Her extremities are without any cyanosis, clubbing, or significant edema and are nontender to palpation bilaterally. Digital cervical examination is deferred. Assessment and Plan (1) Previous section Current Visit: Yes Status: Acute Code(s): Z98.891 - HISTORY OF UTERINE SCAR FROM PREVIOUS SURGERY SNOMED Code(s): 608641748 (2) Term Current Visit: Yes Status: Acute Code(s): Z34.90 - ENCNTR FOR SUPRVSN OF NORMAL , UNSP, UNSP TRIMESTER SNOMED Code(s): 92026658 Plan: The patient is admitted for repeat low transverse section. She has declined intraoperative bilateral tubal occlusion. She will be taken shortly into the operating room to undergo the procedure which is been explained in detail to the patient.
[2022-05-08 12:03] LABS: HCT 34.4 % (34.0-46.0); MCH 30.8 pg (25.0-35.0); MCV 88.1 fL (80.0-100.0); Platelet Count 295 k/uL (150-450); Poikilocytosis Slight; RBC 3.91 m/uL (3.80-5.40); WBC 8.7 k/uL (3.8-10.6)
[2022-05-08] MEDS ORDERED: MORPHINE SULFATE (PF) 0.3 MG/0.3 ML SYR ONE (12:08)
[2022-05-08] MEDS ORDERED: NALBUPHINE 10 MG/ML (1 ML AMP) ONE (12:08)
[2022-05-08] MEDS ORDERED: PHENYLEPHRINE-0.9% NACL SYG 1,000 MCG/10 ML SYRINGE ONE (12:08)
[2022-05-08] MEDS ORDERED: OXYTOCIN 30 UNITS/500 ML NS BAG IV ONE (12:08)
[2022-05-08] MEDS ORDERED: KETOROLAC 30 MG/ML 1 ML VIAL ONE (12:08)
[2022-05-08] MEDS ORDERED: ONDANSETRON 4 MG/2 ML VIAL ONE (12:08)
[2022-05-08 12:24] LABS: Lymphocytes # (M) 2.26 k/uL (1.0-4.8); Monocytes # (M) 0.17 k/uL (0-1.0); Neutrophils # (M) 6.26 k/uL (1.3-7.7); Neutrophils % (M) 72 %; Nucleated Red Blood Cells 0 /100 WBC (0-0); Total Cells Counted 100
[2022-05-08] MEDS ORDERED: NALBUPHINE 10 MG/ML (1 ML AMP) IV PRN (12:39)
[2022-05-08] MEDS ORDERED: NALOXONE 0.4 MG/ML 1 ML VIAL IV PRN (12:39)
[2022-05-08] MEDS ORDERED: HYDROmorphone 0.5 MG/0.5 ML SYRINGE IVP PRN (12:39)
[2022-05-08] MEDS ORDERED: ONDANSETRON 4 MG/2 ML VIAL IVP PRN (12:39)
[2022-05-08] MEDS ORDERED: METOCLOPRAMIDE 5 MG/ML 2 ML VIAL IVP PRN (13:08)
[2022-05-08] MEDS ORDERED: SIMETHICONE 80 MG CHEWABLE PO PRN (13:08)
[2022-05-08] MEDS ORDERED: KETOROLAC 15 MG/ML 1 ML VIAL IVP PRN (13:08)
[2022-05-08] MEDS ORDERED: ZOLPIDEM 5 MG TAB PO PRN (13:08)
[2022-05-08] MEDS ORDERED: diphenhydrAMINE 25 MG CAP PO PRN (13:08)
[2022-05-08] MEDS ORDERED: diphenhydrAMINE 50 MG CAP PO PRN (13:08)
[2022-05-08] MEDS ORDERED: diphenhydrAMINE 50 MG/ML 1 ML VIAL IVP PRN ×2 (13:08)
[2022-05-08] MEDS ORDERED: OXYTOCIN 30 UNITS/500 ML NS 30 UNIT in SALINE 1 500ML.BAG IV SCH (13:15)
--- NOTE | 2022-05-08 13:17 | P.OP ---
Date of Procedure: 05/08/22 Preoperative Diagnosis: #1. 38-3/7 weeks, previous section x2 #2. Large for gestational age fetus #3. Chronic hypertension Postoperative Diagnosis: Same Procedure(s) Performed: #1. Repeat low transverse section Anesthesia: spinal Surgeon: Pipo Hightower Disability Specialist #1: Sharla Ochoa Estimated Blood Loss (ml): 575 IV fluids (ml): 1,000 Urine output (ml): 400 Pathology: none sent Condition: stable Disposition: floor Operative Findings: Intraoperatively, there was a moderate amount of scarring from the skin to the fascia and at the level of the muscles. There was minimal scarring in the abdomen. The lower uterine segment was extraordinarily thin. The fetus was encountered in the breech presentation and was delivered with standard breech maneuvers. She was delivered of a viable 11 lbs. 1 oz. baby boy with Apgars of 8 at 1 minute and 9 at 5 minutes in length breech presentation. The placenta was delivered manually, intact, and grossly normal with a grossly normal three- vessel cord. The uterus, tubes, and ovaries were entirely normal to inspection. Description of Procedure: The patient was prepped and draped in usual fashion after spinal anesthesia was administered by the anesthesiologist. A Pfannenstiel incision was made through pre-existing scar and extended into the abdominal cavity without difficulty though there was some scarring at the level of the fascia and muscles. The bladder peritoneum was significantly distal to the intended site of incision and was left intact. A 2 cm incision was made in the transverse plane of the lower uterine segment to enter the uterus at which time clear fluid was noted. The incision was extended in both directions bluntly. The breech was encountered and was delivered through the incision followed by the legs with standard breech maneuvers. The arms she, shoulders, and head were delivered centimeters well. The cord was doubly clamped, cut, and the passed resuscitative measures with weight and Apgars as noted above. A segment of cord was doubly clamped, cut, and set aside should cord gases become necessary. The placenta was delivered manually and intact as noted above. The uterus was exteriorized and the interior cavity uterus swept of any remaining placental or membranous fragments. The margins of the uterine incision were grasped with Scruggs clamps and the incision closed in 2 layers, the first layer was a running locking stitch of 0 chromic catgut followed by a running imbricating stitch of 0 chromic catgut, each from margin to margin. There was a moderate amount of bleeding at the left angle which was controlled I merrily with a 2 layer closure a but then required also a single [id number]-[id number] stitch which created excellent hemostasis. The posterior cul-de-sac was suctioned with a guard and the uterus and ovaries were normal as noted above. The uterus was replaced within the abdominal cavity and the gutters swept of any blood, fluid, or clot. The uterine incision was reexamined and found to be hemostatic. Nevertheless, surgical no was laid across the entirety of the incision to aid with hemostasis. The parietal peritoneum was loosely reapproximated and layer of muscles examined and found to be hemostatic. The fascia was closed with a single running stitch of 0 Vicryl proceeding from one margin to the other. The subcutaneous tissues were irrigated, made hemostatic with the Bovie, and reapproximated with a running stitch of 30 plain catgut. The skin was reapproximated with a running subcuticular stitch of 4-0 Vicryl followed by half-inch Steri-Strips placed with Mastisol. Quantitative blood loss for the case was 575 mL. There were no complications. All sponge, instrument, needle counts were correct. The patient tolerated the procedure well and proceeded to the recovery room in stable condition. Both mother and infant are resting comfortably in recovery.
[2022-05-08] MEDS: ACETAMINOPHEN TAB 500 MG TAB PO SCH ×3 (17:47→23:52)
[2022-05-08] MEDS: SENNOSIDES-DOCUSATE SODIUM 1 EACH TAB PO SCH (21:19)
[2022-05-08] MEDS: LACTATED RINGERS 1,000 ML IV SCH (22:32)
[2022-05-08] MEDS: IBUPROFEN 600 MG TAB PO SCH (22:33)
[2022-05-09] MEDS: IBUPROFEN 600 MG TAB PO SCH ×5 (02:23→23:37)
[2022-05-09 07:11] LABS: Basophils % (A) 0 %; Eosinophils % (A) 1 %; HCT 33.1 % (34.0-46.0); HGB 10.3 gm/dL (11.4-16.0); Hypochromasia Slight; Lymphocytes # (A) 1.3 k/uL (1.0-4.8); Lymphocytes % (A) 16 %; MCH 28.6 pg (25.0-35.0); MCHC 31.1 g/dL (31.0-37.0); MCV 92.1 fL (80.0-100.0); Mean Platelet Volume 8.8; Monocytes # (A) 0.5 k/uL (0-1.0); Monocytes % (A) 6 %; Neutrophils # (A) 6.3 k/uL (1.3-7.7); Neutrophils % (A) 75 %; Platelet Count 231 k/uL (150-450); WBC 8.3 k/uL (3.8-10.6)
[2022-05-09] MEDS: ACETAMINOPHEN TAB 500 MG TAB PO SCH ×3 (08:13→20:23)
[2022-05-09] MEDS: SENNOSIDES-DOCUSATE SODIUM 1 EACH TAB PO SCH ×2 (08:13→20:24)
--- NOTE | 2022-05-09 08:20 | P.PN ---
Progress Note - Text Progress Note Date: 05/09/22 (9252) Anesthesia Postop day 1 Subjective: Status Post section with Duramorph. Patient seen and examined. Doing well without complaint. VAS 0. No nausea or pruritus. Afebrile. Gross lower extremity strength intact. Without apparent anesthetic complications. Objective: Vital signs reviewed Heart: Regular Rate Lungs: Good chest excursion Abdomen: Appears nondistended Assessment: Status post with Duramorph postop day 1 Plan: Continue current care with your medical management. Anticipated and the Duramorph around noon tonight, you may see increased pain needs around this time.
--- NOTE | 2022-05-09 08:39 | P.PNOBGPC ---
Subjective - Subjective Patient reports: Reports appetite normal, Reports voiding normally, Reports pain well controlled, Reports ambulating normally : doing well, nursing well Objective - Vital Signs Latest vital signs: Vital Signs Temp Pulse Resp BP Pulse Ox 05/09/22 06:00 16 05/09/22 03:40 98.1 F 101 H 18 124/79 97 05/09/22 02:00 16 05/09/22 00:00 98.6 F 97 18 126/74 97 05/08/22 22:00 18 05/08/22 20:30 98.2 F 91 18 130/81 96 05/08/22 16:43 16 05/08/22 15:39 20 05/08/22 15:16 96 20 125/64 99 05/08/22 14:46 81 20 133/71 94 L 05/08/22 14:16 82 20 138/82 97 05/08/22 14:01 73 20 134/69 95 05/08/22 13:46 82 16 116/64 97 05/08/22 13:39 20 86 L 05/08/22 13:31 88 20 112/58 97 05/08/22 13:16 96.5 F L 92 20 113/56 98 05/08/22 10:46 97.4 F L 120 H 20 131/80 98 Intake and Output 05/08/22 05/09/22 05/09/22 22:59 06:59 14:59 Intake Total 1000 Output Total 400 100 Balance -400 900 Intake: IV 1000 Invasive Line 1 1000 Output: Urine 400 100 Uretheral ([place]uceda) 400 Other: Voiding Method Indwelling Catheter # Voids 2 1 - Exam Extremities: Present: normal Abdomen: Present: normal appearance, soft. Absent: distention, tenderness Incision: Present: normal, dry, intact Uterus: Present: normal, firm (Uterine fundus is tonic inappropriately tender below the umbilicus.) - Labs Labs: Abnormal Lab Results - Last 24 Hours (Table) 05/08/22 05/09/22 Range/Units 11:32 05:56 RBC 3.60 L (3.80-5.40) m/uL Hgb 10.3 L (11.4-16.0) gm/dL Hct 33.1 L (34.0-46.0) % RDW 16.0 H 16.0 H (11.5-15.5) % Assessment and Plan (1) Previous section Current Visit: Yes Status: Acute Code(s): Z98.891 - HISTORY OF UTERINE SCAR FROM PREVIOUS SURGERY SNOMED Code(s): 723366597 (2) Term Current Visit: Yes Status: Acute Code(s): Z34.90 - ENCNTR FOR SUPRVSN OF NORMAL , UNSP, UNSP TRIMESTER SNOMED Code(s): 07331710 (3) Status post section Current Visit: Yes Status: Acute Code(s): Z98.891 - HISTORY OF UTERINE SCAR FROM PREVIOUS SURGERY SNOMED Code(s): 401128958 Plan: Continue routine and postoperative care. I have encouraged the patient amnio in the hallways routinely. I would anticipate discharge home tomorrow pending no complications.
[2022-05-10] MEDS: ACETAMINOPHEN TAB 500 MG TAB PO SCH ×2 (04:41→11:04)
[2022-05-10] MEDS: IBUPROFEN 600 MG TAB PO SCH (08:34)
[2022-05-10 08:51] VITALS: BP 135/79; PULSE 79; RESP 16; TEMP 98.1
--- NOTE | 2022-05-10 09:54 | P.DS ---
Providers Date of admission: 05/08/22 10:10 Expected date of discharge: 05/10/22 Attending physician: Pipo Hightower Primary care physician: Stated None - Discharge Diagnosis(es) (1) Previous section Current Visit: Yes Status: Acute (2) Term Current Visit: Yes Status: Acute (3) Status post section Current Visit: Yes Status: Acute Hospital Course: The patient is a 31-year-old 5 para 2021 admitted at 38-3/7 weeks by good dating parameters perches admitted for repeat low transverse section and being section early secondary to chronic hypertension which is been slightly labile throughout the . All workups for preeclampsia have been negative. She does carry a history of 2 previous sections as well as 2 large for gestational age fetuses. The current fetus measures at 90th percentile or greater. On labor and delivery, all signs reassuring. She was taken the operating room where she was delivered from of a viable 11 lbs. 1 oz. baby boy with Apgars of 8 at 1 minute and 9 at 5 minutes who was found to be in the breech presentation. The patient's and postoperative course were unremarkable with vital signs being stable and her temperature was afebrile throughout. She was deemed stable for discharge on postoperative and day #2. She was discharged home to follow-up in the office in 2 weeks for an incision check and 6 weeks routinely. Discharge instructions included calling for any significantly increased bleeding or foul-smelling lochia, significantly increased fever or abdominal pain, perineal complaints, breast complaints, incisional complaints, or anything else that concerned her. She was additionally instructed to have nothing in the vagina for at least 6 weeks time to include intercourse and to abstain from any heavy lifting over the same period of time. She was lastly instructed to do no driving until off of all pain medications or 2 weeks' time, whichever came first. She understood her instructions and agrees to follow up as noted above. Discharge medications included continued [id number] analgesic pain medications as well as vitamins as she is currently breast-feeding. She was provided a prescription for Tylenol 3, 1-2 by mouth every 6 hours when necessary pain, #20 dispensed with no refills. Maternal blood type is O+ and rubella status is immune. Discharge hemoglobin and hematocrit were 10.3 and 33.1 respectively. Procedures: #1. Repeat low transverse section Patient Condition at Discharge: Stable Plan - Discharge Summary Discharge Rx Participant: Yes New Discharge Prescriptions: No Action Pnv No.95/Ferrous Fum/Folic AC [ Multivitamin Tablet] 1 each PO DAILY Labetalol [Trandate] 200 mg PO BID Omeprazole Magnesium [PriLOSEC OTC] 20 mg PO DIRECTED PRN PRN Reason: Heartburn Aspirin 81 mg PO DAILY Discharge Medication List Pnv No.95/Ferrous Fum/Folic AC [ Multivitamin Tablet] 1 each PO DAILY 08/14/18 [History] Aspirin 81 mg PO DAILY 04/17/22 [History] Labetalol [Trandate] 200 mg PO BID 04/17/22 [History] Omeprazole Magnesium [PriLOSEC OTC] 20 mg PO DIRECTED PRN 05/06/22 [History] Follow up Appointment(s)/Referral(s): Pipo Hightower MD [STAFF PHYSICIAN] - 2 Weeks Discharge Disposition: HOME SELF-CARE
== END 2022-05-10 13:00 | disposition home or self-care (01) | DRG 540 ==
LOC: 4FBP 10:10
PROVIDERS: ADMIT Obstetrics & Gynecology; ATTEND Obstetrics & Gynecology
PROC: 4A0HXCZ Measurement of Products of Conception, Cardiac Rate, External Approach (ICD-10-PCS; 2022-05-08)
PROC: 10D00Z1 Extraction of Products of Conception, Low, Open Approach (ICD-10-PCS; principal; 2022-05-08 12:00)
DX: O34.211 Maternal care for low transverse scar from previous cesarean delivery (principal); O32.1XX0 Maternal care for breech presentation, not applicable or unspecified; O36.63X0 Maternal care for excessive fetal growth, third trimester, not applicable or unspecified; O99.62 Diseases of the digestive system complicating childbirth; O99.52 Diseases of the respiratory system complicating childbirth; O10.92 Unspecified pre-existing hypertension complicating childbirth; J45.909 Unspecified asthma, uncomplicated; K21.9 Gastro-esophageal reflux disease without esophagitis; H91.90 Unspecified hearing loss, unspecified ear; Z3A.38 38 weeks gestation of pregnancy; Z37.0 Single live birth; Z79.82 Long term (current) use of aspirin; Z97.4 Presence of external hearing-aid
CPT/HCPCS: 85025; 86850; 86900; 86901